=== PATIENT | male | born 1970 | race Caucasian/White ===

== ENCOUNTER 2020-05-28 07:45 | Day surgery (SDC) | payer BC, OTHER ==
[~2020-05-28 07:45] MED LIST: Sodium Chloride 0.9% 10 ML Syringe FLUSH PRN
[2020-05-28] MEDS ORDERED: Midazolam 1 MG/ML 2 ML SDV ONE ×2 (07:57→08:47)
[2020-05-28] MEDS ORDERED: fentaNYL 250 MCG/5 ML SDV ONE ×2 (07:57→08:47)
[2020-05-28] MEDS ORDERED: Propofol 200 MG/20 ML SDV ONE ×2 (07:58→08:47)
[2020-05-28] MEDS: Lactated Ringers 1,000 ML IV SCH (08:20)
[2020-05-28] MEDS ORDERED: Ketorolac 30 MG/ML SDV ONE (08:47)
[2020-05-28] MEDS ORDERED: Rocuronium 100 MG/10 ML MDV ONE (08:47)
[2020-05-28] MEDS ORDERED: fentaNYL 100 MCG/2 ML SDV ONE ×2 (08:47→11:11)
[2020-05-28] MEDS ORDERED: ceFAZolin 1 GM Vial ONE (08:47)
[2020-05-28] MEDS ORDERED: Glycopyrrolate 0.2 MG/ML SDV ONE (08:47)
[2020-05-28] MEDS ORDERED: Ondansetron 4 MG/2 ML SDV ONE (08:47)
[2020-05-28] MEDS ORDERED: Dexamethasone 10 MG/ML SDV ONE (08:47)
[2020-05-28] MEDS ORDERED: Neostigmine Methylsulfate 10 MG/10 ML MDV ONE (08:47)
[2020-05-28] MEDS ORDERED: Succinylcholine 200 MG/10 ML MDV ONE (08:47)
[2020-05-28] MEDS: Bupivacaine 0.5%/EPINEPHrine 1:200,000 30 ML SDV INJECT ONE (09:10)
[2020-05-28] MEDS: ceFAZolin 1 GM Vial ONE (09:17)
--- NOTE | 2020-05-28 11:07 | PCM.HPR ---
H & P Addendum review - H & P Addendum Review Date of Original H & P: 05/25/20 Date Reviewed: 05/28/20 Time Reviewed: 08:30 Patient was Examined: No Changes Please Note any Changes: Examined patient. Has medium sised R IH and small umbilical hernia, both causing pain. Discussed procedure, risks and complications. Consent obtained.
--- NOTE | 2020-05-28 11:08 | PCM.OPNOTE ---
- General Post-Op/Procedure Note Date of Surgery/Procedure: 05/28/20 Operative Procedure(s): R IH and Umbilical Hernia Repair Pre Op Diagnosis: R IH and Umb Hernia Post-Op Diagnosis: Same Anesthesia Technique: General ET Tube, Local Primary Surgeon: Davie Kamara Anesthesia Provider: Abby Tan EBFroy in mLs: 10 Complications: None Condition: Good
--- NOTE | 2020-05-28 13:12 | OR ---
Date of Procedure: 05/28/2020 PREOPERATIVE DIAGNOSES: 1. Right inguinal hernia. 2. Umbilical hernia. POSTOPERATIVE DIAGNOSES: 1. Right inguinal hernia. 2. Umbilical hernia. PROCEDURES: 1. Right inguinal hernia repair with mesh. 2. Umbilical hernia repair. ANESTHESIA: General with local. HISTORY: This 49-year-old gentleman presented to the clinic with worsening lower right abdominal and periumbilical pain. He was noted to have inguinal and umbilical hernia on exam, which was also confirmed with CT scan. I examined him prior to surgery and both hernias are palpable. He has a previous left inguinal hernia repair with no evidence of recurrence. I discussed the surgical procedure and also the risks and complications, and informed consent was obtained. The patient was brought to the operating room where general endotracheal anesthesia was administered. Abdomen was clipped, prepped with ChloraPrep and draped sterilely. 2 g of IV Ancef had been given. Time-out was performed. A 50:50 mixture of 1% lidocaine with epinephrine and 0.25% Marcaine was used for local anesthesia. The right groin area and later umbilical region were infiltrated. A routine hernia incision was made 2 fingerbreadths above the right inguinal crease and extended through the subcutaneous tissue until the external fascia was identified. This was opened in line with the external ring. External fascia was opened and searched for the ilioinguinal nerve, did not reveal one. There was a higher iliohypogastric nerve that was identified and protected from injury. The cord structures were removed off the pubic tubercle and a [place] drain placed around these. The cord was from the cremasteric muscle fibers and indirect hernia sac. Cremasteric muscle fibers were split between clamps and tied with 2-0 Vicryl. The hernia sac was opened and no contents were present. This was cleared down to the internal ring and twisted and then suture ligated with 2-0 Vicryl and excess sac transected. A routine hernia repair was then performed by using a large precut keyhole polypropylene mesh and securing it to the pubic tubercle with 0 Prolene. Several more interrupted sutures were used to secure this to Richmond's ligament inferiorly. A transition stitch was made to the shelving edge of Poupart's ligament. The edges of the mesh were brought together laterally and secured with 0 Prolene such that the tip of the small finger would snugly fit into the opening. The edges of the mesh were then cut to length laterally and tucked beneath the external fascia. After the inferior edge was finished being secured, several interrupted 0 Prolene sutures were used to secure to the muscle superiorly. This provides a tension-free repair. Wound was thoroughly irrigated with Ancef and saline and return was clear and hemostasis assured. External fascia was closed with running 2-0 Vicryl, subcutaneous tissue was reapproximated with 3-0 Vicryl and skin closed with a running 4-0 Vicryl subcuticular suture. Benzoin and Steri-Strips were placed and a sterile dressing applied. The patient tolerated this well. Next, umbilical hernia was repaired by making an infraumbilical incision and extending it into the subcutaneous tissue. The umbilical skin was off the hernia sac, which was followed down to the level of the fascia. The sac was transected circumferentially and some preperitoneal fat reduced back into the preperitoneal space. The hernia defect measures 1 cm in diameter and was closed with interrupted 0 Prolene providing a tension-free repair. Subcutaneous tissue was reapproximated with 3-0 Vicryl and skin closed with 4-0 Vicryl subcuticular sutures. Benzoin and Steri-Strips were also placed and a dressing applied. Patient tolerated the procedure well. Estimated blood loss is less than 10 mL. He returned to postanesthesia in stable condition. The testicles were in the scrotum following the procedure. KARSTEN AMBRIZ MD /[id number]
[2020-05-28 13:15] VITALS: BP 125/84; PULSE 59
== END 2020-05-28 13:45 | disposition home or self-care (01) ==
LOC: LL.SDS 07:45
PROVIDERS: ATTEND Surgery
DX: K42.9 Umbilical hernia without obstruction or gangrene (principal); K40.90 Unilateral inguinal hernia, without obstruction or gangrene, not specified as recurrent; F17.210 Nicotine dependence, cigarettes, uncomplicated; Z01.812 Encounter for preprocedural laboratory examination; Z20.822 Contact with and (suspected) exposure to COVID-19
CPT/HCPCS: 00830; C1781; J0330; J0690; J1100; J1885; J2001; J2250; J2405; J2704; J2710; J3010; J3490; J7120; U0002

== ENCOUNTER 2023-12-14 11:31 | Day surgery (SDC) | payer OTHER ==
[~2023-12-14 11:31] MED LIST changes: +Midazolam 1 MG/ML 2 ML SDV ONE; +Propofol 200 MG/20 ML SDV ONE; -Sodium Chloride 0.9% 10 ML Syringe FLUSH PRN
[2023-12-14] MEDS: Lactated Ringers 1,000 ML IV SCH (12:12)
[2023-12-14] MEDS ORDERED: Sodium Chloride 0.9% 10 ML Syringe FLUSH PRN (13:00)
[2023-12-14 14:25] VITALS: BP 106/62; PULSE 50
== END 2023-12-14 15:40 | disposition home or self-care (01) ==
LOC: LL.SDS 11:31
PROVIDERS: ATTEND Surgery
DX: Z12.11 Encounter for screening for malignant neoplasm of colon (principal); D12.4 Benign neoplasm of descending colon; D12.0 Benign neoplasm of cecum; D12.3 Benign neoplasm of transverse colon; D12.5 Benign neoplasm of sigmoid colon; R19.5 Other fecal abnormalities; Z79.899 Other long term (current) drug therapy; Z87.891 Personal history of nicotine dependence
CPT/HCPCS: J2250; J2704; J7120